=== PATIENT | female | born 1980 | race Caucasian/White ===

== ENCOUNTER → 2016-07-07 | Outpatient (CLI) | payer MEDICARE ==
[~2016-07-07] MED LIST: NORCO 10-325 T1 EACH PO; OXYCODONE HCL10 MG PO; SYNTHROID25 MCG PO
== END ==
LOC: KOH-I 13:36
DX: T14.8 Other injury of unspecified body region (principal); M25.532 Pain in left wrist
CPT/HCPCS: 73110

== ENCOUNTER → 2016-07-09 | Outpatient (CLI) | payer MEDICARE ==
[2016-07-09 12:22] LABS: BUN/CREATININE RATIO 28 (0-10)
== END ==
LOC: OPSV2 09:00
PROVIDERS: Orthopaedic Surgery
DX: Z01.812 Encounter for preprocedural laboratory examination (principal); S52.502A Unspecified fracture of the lower end of left radius, initial encounter for closed fracture; Z98.51 Tubal ligation status
CPT/HCPCS: 36415; 80048

== ENCOUNTER → 2016-07-16 | Day surgery (SDC) | payer MEDICARE ==
[~2016-07-16] VITALS: Ht 152.4 cm; Wt 98.0 kg
== END | disposition home or self-care (01) ==
LOC: OR 08:04
PROVIDERS: Orthopaedic Surgery
PROC: 0PSJ04Z Reposition Left Radius with Internal Fixation Device, Open Approach (ICD-10-PCS; principal; 2016-07-16 13:30)
DX: S52.572A Other intraarticular fracture of lower end of left radius, initial encounter for closed fracture (principal); E07.9 Disorder of thyroid, unspecified; J45.909 Unspecified asthma, uncomplicated; E03.9 Hypothyroidism, unspecified; F17.210 Nicotine dependence, cigarettes, uncomplicated; Z79.891 Long term (current) use of opiate analgesic; Z79.899 Other long term (current) drug therapy; Z90.89 Acquired absence of other organs; Z86.69 Personal history of other diseases of the nervous system and sense organs; W01.0XXA Fall on same level from slipping, tripping and stumbling without subsequent striking against object, initial encounter
CPT/HCPCS: 73100; 76000; 94664; C1713; J0690; J2250; J2795; J3010; J7030; J7120

== ENCOUNTER 2021-06-22 04:12 | Emergency (ER) | payer OTHER ==
[2021-06-22 05:00] LABS: HEMOGLOBIN 12.3 gm/dl (12.3-15.3); RED BLOOD COUNT 5.38 M/UL (4.00-5.10); WHITE BLOOD COUNT 12.3 K/UL (4.5-11.0)
[2021-06-22 05:21] LABS: BUN/CREATININE RATIO 25 (0-10)
[2021-06-22] MEDS ORDERED: MACROBID 100 M100 M1 PO (07:06)
== END 2021-06-22 07:35 | disposition home or self-care (01) ==
LOC: ER1 04:12
PROVIDERS: Physician Assistant
DX: R07.9 Chest pain, unspecified (principal); R19.7 Diarrhea, unspecified; I10 Essential (primary) hypertension; F17.200 Nicotine dependence, unspecified, uncomplicated
CPT/HCPCS: 71045; 80053; 81001; 82550; 82553; 83690; 84484; 84703; 85025; 85379; 87086; 93005; 99285; J2405; Q9967